=== PATIENT | female | born 1960 | race Caucasian/White ===

== ENCOUNTER 2016-10-11 11:52 | Day surgery (SDC) | payer OTHER ==
[2016-10-11] VITALS (12 sets, daily range): BP systolic 137–159; BP diastolic 62–80; PULSE 66–86; RESP 13–20
[2016-10-11 12:47] LABS: ADD SCAN DIFF NO
[2016-10-11 13:10] LABS: INR 0.92; PROTIME 12.4 Sec (12.2-14.2)
[2016-10-11 13:12] LABS: ALBUMIN 4.7 g/dl (3.3-4.9); ALBUMIN/GLOBULIN RATIO 1.62; BILIRUBIN,INDIRECT 0.7 mg/dl (0-1.1); BILIRUBIN,TOTAL 0.7 mg/dl (0.2-1.3); CALCIUM 9.8 mg/dl (8.4-10.2); CREATININE 0.61 mg/dl (0.44-1.00); POTASSIUM 4.6 mmol/L (3.5-5.1); TOTAL PROTEIN 7.6 g/dl (6.1-8.1)
[2016-10-11 13:16] LABS: BASOPHIL # 0.1 10^3/ul (0.0-0.1); BASOPHILS % 0.7 % (0.0-2.0); EOSINOPHILS # 0.1 10^3/ul (0.0-0.5); EOSINOPHILS % 1.6 % (0.0-7.0); HEMATOCRIT 43.2 % (37.0-47.0); HEMOGLOBIN 13.9 g/dl (12.0-16.0); LYMPHOCYTES # 2.4 10^3/ul (0.8-2.9); LYMPHOCYTES % 34.5 % (15.0-51.0); MEAN CORPUSCULAR HEMOGLOBIN 29.1 pg (29.0-33.0); MEAN CORPUSCULAR HGB CONC 32.2 g/dl (32.0-37.0); MEAN CORPUSCULAR VOLUME 90.4 fl (82.0-101.0); MEAN PLATELET VOLUME 10.6 fl (7.4-10.4); MONOCYTE # 0.3 10^3/ul (0.3-0.9); MONOCYTES % 4.9 % (0.0-11.0); NEUTROPHIL # 4.1 10^3/ul (1.6-7.5); PLATELET COUNT 252 10^3/UL (140-415); RED BLOOD COUNT 4.78 10^6/ul (4.20-5.40); RED CELL DISTRIBUTION WIDTH 13.1 % (11.5-14.5)
[2016-10-11 13:22] LABS: PARTIAL THROMBOPLASTIN TIME 38.6 Sec (25.0-35.0)
[2016-10-11] MEDS ORDERED: CEFAZOLIN 2 GM/50 ML (PMX) 50 ML IVPB ONE (13:30)
[2016-10-11] MEDS ORDERED: SOD CHLORIDE 0.9% 1,000 ML IV SCH (13:30)
--- NOTE | 2016-10-11 13:34 | RADRPT ---
PROCEDURE: XR Chest. CLINICAL INDICATION: Preoperative. TECHNIQUE: Single frontal view. COMPARISON: None. FINDINGS: The lungs are clear. The heart size is normal. There is no pleural effusion. There is no pneumothorax. IMPRESSION: 1. Normal chest radiograph. RPTAT: QQ .Per Jim MD, Date Time Electronically viewed and signed by .Per Jim MD, on 10/11/2016 13:34 .R/
[2016-10-11] MEDS ORDERED: MIDAZOLAM 1 MG/ML 2 ML INJ ONE (13:40)
[2016-10-11] MEDS ORDERED: CEFAZOLIN 1 GM INJ ONE (13:40)
[2016-10-11] MEDS ORDERED: FENTAnyl 50 MCG/ML VIAL ONE (13:40)
[2016-10-11] MEDS ORDERED: PROPOFOL 20 ML ONE (13:40)
--- NOTE | 2016-10-11 13:48 | RADRPT ---
Vent Rate: 70 bpm RR Interval: 0 msec CA Interval: 132 msec QRS Duration: 98 msec QT Interval: 396 msec QTC Interval: 427 msec P-R-T [place]: 42 - 65 - 38 degrees Normal sinus rhythm Incomplete right bundle branch block Borderline ECG Electronically Signed By: Jonas Gold [id number]
[2016-10-11] MEDS ORDERED: ROCURONIUM 50 MG INJ ONE (14:11)
[2016-10-11] MEDS ORDERED: KETOROLAC 30 MG INJ ONE (14:30)
[2016-10-11] MEDS ORDERED: DEXAMETHASONE 4 MG/ML 1 ML INJ ONE (14:30)
[2016-10-11] MEDS ORDERED: ONDANSETRON 4 MG INJ ONE (14:30)
[2016-10-11] MEDS ORDERED: METOCLOPRAMIDE 10 MG INJ ONE (14:30)
[2016-10-11] MEDS ORDERED: BUPIVACAINE 0.25% (MPF) 30 ML INJ ONE (14:34)
[2016-10-11] MEDS ORDERED: DIPHENHYDRAMINE 50 MG INJ IV PRN (15:00)
[2016-10-11] MEDS ORDERED: morphine (1 MG/ML) 10ML SYRINGE IV PRN ×3 (15:00)
[2016-10-11] MEDS ORDERED: EPHEDrine SULFATE 50 MG/5 ML SYG IV PRN (15:00)
[2016-10-11] MEDS ORDERED: HYDROCODONE/APAP (5/325) TAB PO ONE (15:00)
[2016-10-11] MEDS ORDERED: ONDANSETRON 4 MG INJ IV PRN (15:00)
[2016-10-11] MEDS ORDERED: LABETALOL HCL 20MG INJ IV PRN (15:00)
[2016-10-11] MEDS ORDERED: HYDROmorphONE (0.2 MG/ML) 10ML SYG IV PRN ×3 (15:00)
[2016-10-11] MEDS ORDERED: OXYCODONE/ACETAMINOPHEN (5/325) TAB PO PRN ×2 (15:00)
[2016-10-11] MEDS ORDERED: ALBUMIN HUMAN 5% 250 ML IV PRN (15:00)
[2016-10-11] MEDS ORDERED: MEPERIDINE 25 MG INJ IV PRN (15:00)
[2016-10-11] MEDS ORDERED: hydrALAzine 20 MG INJ IV PRN (15:00)
[2016-10-11] MEDS ORDERED: GLYCOPYRROLATE 0.4 MG INJ ONE (15:02)
[2016-10-11] MEDS ORDERED: NEOSTIGMINE 3 MG/3 ML SYRINGE ONE (15:02)
--- NOTE | 2016-10-11 15:06 | OPR ---
Date/Time of Note Date/Time of Note DATE: 10/11/16 TIME: 15:02 Operative Report Procedure Date: Oct 11, 2016 Preoperative Diagnosis hemorrhoids Postoperative Diagnosis hemorrhoids Operation Performed 1. proctoplasty for prolapse of mucus membranes cpt code 32624 2. ligation of internal hemorrhoids multiple procedures cpt code 38087 3. rigid proctoscopy 4. therapeutic injection of subcutaneous local anesthesia cpt code 07668 Surgeon: Celia BELLE Indications This is a 56-year-old female with internal and external hemorrhoids per she required surgical repair. Risks alternatives benefits of procedure were discussed with patient. Patient expressed understanding consents to the operation. Procedure Description Patient is taken to the OR and prepped and draped in usual sterile fashion. Surgical timeout was performed IV antibiotics given. Rigid proctoscopy performed. There is no evidence of any masses or obstructive lesions. Transanal hemorrhoidal dearterialization device is used to place multiple figure -of-eight 0 Vicryl sutures to ligate the internal hemorrhoidal artery. Additionally a running 0 Vicryl suture was placed from the proximal hemorrhoid to the dentate line. This allowed for the proctoplasty portion of the procedure. There is good hemostasis. There is no evidence of any stricture. Repeat rigid proctoscopy was performed. Therapeutic local anesthesia was injected into the mucous membranes. Dry dressings were applied. Celia BELLE Oct 11, 2016 15:06
== END 2016-10-11 17:25 | disposition home or self-care (01) ==
LOC: SDS 11:52
PROVIDERS: ATTEND Surgery
DX: K64.9 Unspecified hemorrhoids (principal); K64.4 Residual hemorrhoidal skin tags
CPT/HCPCS: 45505; 46946; 71010; 80053; 85025; 85610; 85730; 93005; J0690; J1100; J1885; J2250; J2405; J2710; J2765; J3010; Z7512; Z7610